=== PATIENT | female | born 1990 | race Caucasian/White ===

== ENCOUNTER 2018-10-23 22:32 | Emergency (ER) | payer MEDICAID, SELFPAY ==
[2018-10-23 22:33] VITALS: BP 165/101; PULSE 76; RESP 16; TEMP 36.2; O2SAT 98; BMI 37.8
--- NOTE | 2018-10-23 23:04 | ED.VIS.GEN ---
History of Present Illness Chief Complaint: General Illness Narrative: Patient is a 28-year-old female who presents with nausea and dizziness. She describes this as a sensation of movement of the room spinning rather than near syncope. Although triage note notes headache the patient denied having any pain to me. She did have a recent URI like illness with congestion and rhinorrhea. She was treated with azithromycin. She denies any tinnitus. No weakness or paresthesias. Past Medical History - Allergies and Home Meds Allergies/Adverse Reactions: Allergies No Known Allergies Allergy (Verified 10/23/18 22:35) Primary Care Physician: Claudia Gann [Primary Care Provider] - Past Medical History: None Review of Systems All systems negative except as indicated General: Denies: Fever Cardiovascular: Denies: Chest pain Respiratory: Denies: Dyspnea Gastrointestinal: Reports: Nausea. Denies: Vomiting Neurological: Reports: - - Vertigo. Denies: Headache Physical Exam Vital Signs/Narrative: Vital Signs Temp Pulse Resp BP Pulse Ox 10/23/18 22:33 97.1 F L 76 16 165/101 H 98 Inital Vital Signs reviewed: Yes General: Well nourished Head: Normocephalic Eyes: - - Nystagmus ENT: Moist mucous membranes Neck: Supple Cardiovascular: Regular rate, Regular rhythm Respiratory: No distress, CTA bilaterally Abdomen: Soft Extremities: Nontender Skin: Normal color Neurological: Alert, Normal Strength, Normal Sensation, - - No ataxia, normal strength and sensation, no focal or lateralizing neurological deficits Diagnostic/Tx/Re-eval - Medical Decision Making Patient's presentation is most consistent with peripheral vertigo. She was treated with Zofran and meclizine and provided with prescriptions for both as well. She understands to return for new or worsening symptoms. All questions answered bedside and the patient was discharged. ED Disposition - Plan for ED Patient: Disposition: Home or Assisted Living Diagnosis: Vertigo Instructions: VERTIGO, Unspecified Prescriptions: Meclizine HCl [Antivert] 25 mg PO 4X/DAY PRN PRN #20 tab PRN Reason: Dizziness Prescription Printed Ondansetron [Zofran Odt] 4 mg PO Q8H PRN PRN #10 tab PRN Reason: Nausea Prescription Printed Referrals: Claudia Gann [Primary Care Provider] -
[2018-10-23] MEDS: Ondansetron ODT 4 MG Tablet PO (23:14)
[2018-10-23] MEDS: Meclizine HCl 25 MG Tablet PO (23:14)
== END 2018-10-23 23:20 | disposition home or self-care (01) ==
LOC: ED 23:18
PROVIDERS: Emergency Provider Emergency Medicine; Family Provider Nurse Practitioner Family; PCP Nurse Practitioner Family
DX: R42 Dizziness and giddiness (principal)
CPT/HCPCS: 99283